=== PATIENT | female | born 1965 | race Caucasian/White ===

== ENCOUNTER 2017-06-27 18:17 | Observation (INO) | payer SELFPAY ==
[~2017-06-27] VITALS: Ht 165.1 cm; Wt 70.0 kg
[~2017-06-27 18:17] MED LIST: CYMB60CA PO; HYDROCODONE; LORT7.5T3 PO; SYNT88TA PO; VIVE0.1D TD
[2017-06-27 18:19] VITALS: BP 134/91; PULSE 110; RESP 22; TEMP 98.7; O2SAT 96
[2017-06-27 18:27] VITALS: RESP 20; O2SAT 95
[2017-06-27] MEDS ORDERED: SODIUM CHLOR 0.9% 1000 ML INJ 1,000 ML IV ONE (18:30)
[2017-06-27] MEDS ORDERED: GABA100C4 PO (18:30)
[2017-06-27] MEDS ORDERED: SYNT88TA PO (18:30)
[2017-06-27] MEDS ORDERED: SODIUM CHLORIDE 0.9% FLUSH 10 ML FLUSH IVF PRN (18:30)
[2017-06-27] MEDS ORDERED: ACETAMINOPHEN 500 MG CPLT PO ONE (18:30)
[2017-06-27] MEDS ORDERED: CYMB60CA PO (18:30)
--- NOTE | 2017-06-27 18:30 | PD ---
HPI Chief Complaint: Chest Pain Time Seen by Provider: 18:21 Travel History International Travel<30 days: No Contact w/Intl Traveler<30days: No Traveled to known affect area: No History of Present Illness HPI Patient comes in for evaluation of chest pain that began shortly prior to arrival. Patient states that chest pain began after receiving a phone call that her father . Patient describes pain as a burning sensation over the inferior aspect of her chest that radiates superiorly. Patient reports she vomited 2 that was nonbloody and nonbilious. Patient reports associated headache and right arm tingling. Denies any loss of bowel or bladder , weakness, change in vision, dizziness, shortness of breath, or fevers. Patient denies ever having a stress test or history of cardiac disease. Patient does report a history of headaches which she normally takes Tylenol. Patient reports headache is throbbing like in nature occipital lobe without radiation. Patient received Ativan by EMS en route that seemed to help some. PFSH Past Medical History Depression: Yes Cancer: No Cardiovascular Problems: No Diabetes: No Hepatitis: No Hiatal Hernia: No Respiratory: No Thyroid Disease: Yes Past Surgical History Abdominal Surgery: Yes (ABDOMINOPLASTY; REVISION ABDOMINOPLASTY) Gynecologic Surgery: Yes ( X 2) Hysterectomy: Yes Pacemaker: No Social History Tobacco Use: No Substance Use: No Allergies-Medications (Allergen,Severity, Reaction): Coded Allergies: prochlorperazine (Unverified Allergy, Severe, INVOLUNTARY CONTRACTION LIMBS, 06/27/17) hydromorphone (Verified Adverse Reaction, Mild, NAUSEA, 06/27/17) Reported Meds & Prescriptions Reported Meds & Active Scripts Active Reported Gabapentin 100 Mg Cap 100 Mg PO TID Cymbalta DR (Duloxetine HCl) 60 Mg Capdr 60 Mg PO DAILY Synthroid (Levothyroxine Sodium) 88 Mcg Tab 88 Mcg PO DAILY Review of Systems Except as stated in HPI: all other systems reviewed are Neg Physical Exam Narrative GENERAL: Well-developed, overly nourished, in no acute distress, and non-ill appearing. SKIN: Focused skin assessment warm and dry. HEAD: Atraumatic. Normocephalic. EYES: Pupils equal and round. EOMI. No scleral icterus. No injection or drainage. ENT: No nasal bleeding or discharge. Mucous membranes pink and moist. NECK: Trachea midline. No JVD. Supple. No nuclear rigidity. CARDIOVASCULAR: Regular rate and rhythm. No murmur appreciated. RESPIRATORY: No accessory muscle use. No respiratory distress. Clear to auscultation. Breath sounds equal bilaterally. GASTROINTESTINAL: Abdomen soft, non-tender, nondistended, and no guarding. Hepatic and splenic margins not palpable. Normal bowel sounds 4. No pulsatile mass. MUSCULOSKELETAL: No obvious deformities. No clubbing. No cyanosis. No edema. Full range of motion. NEUROLOGICAL: Awake and alert. No obvious cranial nerve deficits. Motor grossly within normal limits. Normal speech. PSYCHIATRIC: Appropriate mood and affect; insight and judgment normal. Data Data Last Documented VS Vital Signs Date Time Temp Pulse Resp B/P (MAP) Pulse Ox O2 Delivery O2 Flow Rate FiO2 06/27/17 18:27 20 95 Room Air 06/27/17 18:23 110 06/27/17 18:19 98.7 134/91 (105) Orders Orders Electrocardiogram (06/27/17 18:22) Basic Metabolic Panel (Bmp) (06/27/17 18:22) Ckmb (Isoenzyme) Profile (06/27/17 18:22) Complete Blood Count With Diff (06/27/17 18:22) Magnesium (Mg) (06/27/17 18:22) Prothrombin Time / Inr (Pt) (06/27/17 18:22) Act Partial Throm Time (Ptt) (06/27/17 18:22) Troponin I (06/27/17 18:22) Chest, Single Ap (06/27/17 18:22) Ecg Monitoring (06/27/17 18:22) Bilateral Bp Monitoring (06/27/17 18:22) Iv Access Insert/Monitor (06/27/17 18:22) Oximetry (06/27/17 18:22) Oxygen Administration (06/27/17 18:22) Sodium Chloride 0.9% Flush (Ns Flush) (06/27/17 18:30) Acetaminophen (Tylenol) (06/27/17 18:30) Sodium Chlor 0.9% 1000 Ml Inj (Ns 1000 M (06/27/17 18:30) Ct Brain W/O Iv Contrast(Rout) (06/27/17 ) Admit Order (Ed Use Only) (06/27/17 20:11) Aspirin Chew (Aspirin Chew) (06/27/17 20:15) Activity Bed Rest With Brp (06/27/17 20:11) Vital Signs (Adult) Q4H (06/27/17 20:11) Cardiac Rhythm .As Directed (06/27/17 20:11) Notify Dr: Other .PRN (06/27/17 20:11) Notify Dr. Parameters (06/27/17 20:11) Resp Oxygen Nasal Cannula (06/27/17 ) Ckmb (Isoenzyme) Profile (06/27/17 21:30) Ckmb (Isoenzyme) Profile (06/28/17 00:30) Troponin I (06/27/17 21:30) Troponin I (06/28/17 00:30) Electrocardiogram (06/27/17 21:30) Electrocardiogram (06/28/17 00:30) ^ Obtain (06/27/17 20:11) Sodium Chloride 0.9% Flush (Ns Flush) (06/27/17 20:15) Sodium Chloride 0.9% Flush (Ns Flush) (06/27/17 21:00) Training Generalist / Telemetry MEREDITH.Q8H (06/27/17 20:11) Labs Laboratory Tests Test 06/27/17 18:30 White Blood Count 4.3 TH/MM3 Red Blood Count 4.38 MIL/MM3 Hemoglobin 13.9 GM/DL Hematocrit 39.8 % Mean Corpuscular Volume 90.9 FL Mean Corpuscular Hemoglobin 31.8 PG Mean Corpuscular Hemoglobin Concent 35.0 % Red Cell Distribution Width 13.0 % Platelet Count 170 TH/MM3 Mean Platelet Volume 8.0 FL Neutrophils (%) (Auto) 53.8 % Lymphocytes (%) (Auto) 38.6 % Monocytes (%) (Auto) 6.6 % Eosinophils (%) (Auto) 0.7 % Basophils (%) (Auto) 0.3 % Neutrophils # (Auto) 2.3 TH/MM3 Lymphocytes # (Auto) 1.7 TH/MM3 Monocytes # (Auto) 0.3 TH/MM3 Eosinophils # (Auto) 0.0 TH/MM3 Basophils # (Auto) 0.0 TH/MM3 CBC Comment DIFF FINAL Differential Comment Prothrombin Time 10.5 SEC Prothromb Time International Ratio 1.0 RATIO Activated Partial Thromboplast Time 22.5 SEC Blood Urea Nitrogen 14 MG/DL Creatinine 0.83 MG/DL Random Glucose 105 MG/DL Calcium Level 9.7 MG/DL Magnesium Level 2.4 MG/DL Sodium Level 142 MEQ/L Potassium Level 4.1 MEQ/L Chloride Level 110 MEQ/L Carbon Dioxide Level 23.9 MEQ/L Anion Gap 8 MEQ/L Estimat Glomerular Filtration Rate 72 ML/MIN Total Creatine Kinase 72 U/L Troponin I LESS THAN 0.02 NG/ML MDM Medical Decision Making Medical Screen Exam Complete: Yes Emergency Medical Condition: Yes Interpretation(s) EKG reviewed by Dr. Jo shows sinus tach with ventricular rate 106. No STEMI. Chest x-ray read by the radiologist shows: Normal examination. CT the head read by the radiologist shows: Negative noncontrast CT the head. Differential Diagnosis Acute coronary syndrome, angina, pneumonia, stress reaction, intracranial hemorrhage, migraine, electrolyte abnormality, other Narrative Course Patient was seen and examined. Initial laboratory and radiological studies ordered. IV was established patient's placed on cardiac monitoring. Upon reassessment, patient reports improvement of symptoms is still having slight discomfort in her chest. Discussed patient with Dr. Weeks who is in agreement with plan of care and disposition. Discussed off eyes and plan care of patient was agreeable for admission to the chest pain center for further evaluation. All questions were answered. Patient was given 162 mg of aspirin by mouth. Patient remained stable that ED course. Diagnosis Primary Impression: Chest pain Qualified Codes: R07.9 - Chest pain, unspecified Admitting Information Admitting Physician Requests: Observation Condition: Stable Daryl Wagner Jun 27, 2017 18:30
--- NOTE | 2017-06-27 18:52 | RADRPT ---
EXAM DATE/TIME: 06/27/2017 18:21 [facility] COMPARISON: No previous studies available for comparison. INDICATIONS : Chest pain. MEDICAL HISTORY : None. SURGICAL HISTORY : None. ENCOUNTER: Initial ACUITY: 1 day PAIN SCORE: 10/10 LOCATION: Bilateral chest FINDINGS: A single view of the chest demonstrates the lungs to be symmetrically aerated without evidence of mas s, infiltrate or effusion. The cardiomediastinal contours are unremarkable. Osseous structures are intact. CONCLUSION: No evidence of acute cardiopulmonary disease. Yaron Jaeger MD on June 27, 2017 at 18:50 Board Certified Radiologist. This report was verified electronically.
[2017-06-27 19:13] LABS: AUTOMATED NEUTROPHIL # 2.3 TH/MM3 (1.8-7.7); BASOPHIL % 0.3 % (0.0-2.0); EOSINOPHIL % 0.7 % (0.0-4.0); HEMATOCRIT 39.8 % (35.0-46.0); HEMO FLAGS DIFF FINAL; LYMPH % 38.6 % (9.0-44.0); LYMPHOCYTE # 1.7 TH/MM3 (1.0-4.8); MEAN CELL VOLUME 90.9 FL (80.0-100.0); MEAN CORPUSCULAR HEMOGLOBIN 31.8 PG (27.0-34.0); MONO % 6.6 % (0.0-8.0); NEUT % 53.8 % (16.0-70.0); PLATELET COUNT 170 TH/MM3 (150-450); RED BLOOD COUNT 4.38 MIL/MM3 (4.00-5.30); WHITE BLOOD COUNT 4.3 TH/MM3 (4.0-11.0)
--- NOTE | 2017-06-27 19:33 | RADRPT ---
EXAM DATE/TIME: 06/27/2017 19:26 [facility] COMPARISON: No previous studies available for comparison. INDICATIONS : Headache along with chest pain. Feels like she is going to pass out. RADIATION DOSE: 31.63 CTDIvol (mGy) MEDICAL HISTORY : None SURGICAL HISTORY : Hysterectomy. ENCOUNTER: Initial ACUITY: 1 day PAIN SCALE: 5/10 LOCATION: cranial TECHNIQUE: Multiple contiguous axial images were obtained of the head. Using automated exposure control and adj ustment of the mA and/or kV according to patient size, radiation dose was kept as low as reasonably a chievable to obtain optimal diagnostic quality images. DICOM format image data is available electro nically for review and comparison. FINDINGS: CEREBRUM: The ventricles are normal for age. No evidence of midline shift, mass lesion, hemorrhage or acute in farction. No extra-axial fluid collections are seen. POSTERIOR FOSSA: The cerebellum and brainstem are intact. The 4th ventricle is midline. The cerebellopontine angle i s unremarkable. EXTRACRANIAL: The visualized portion of the orbits is intact. SKULL: The calvaria is intact. No evidence of skull fracture. CONCLUSION: Negative noncontrast head CT. Yaron Jaeger MD on June 27, 2017 at 19:31 Board Certified Radiologist. This report was verified electronically.
[2017-06-27 19:34] LABS: ANION GAP 8 MEQ/L (5-15); BICARBONATE 23.9 MEQ/L (21.0-32.0); BLOOD UREA NITROGEN 14 MG/DL (7-18); CHLORIDE 110 MEQ/L (98-107); GLOMERULAR FILTRATION RATE 72 ML/MIN (>89); MAGNESIUM 2.4 MG/DL (1.5-2.5); POTASSIUM 4.1 MEQ/L (3.5-5.1); SODIUM (NA) 142 MEQ/L (136-145)
[2017-06-27 19:40] LABS: CREATINE KINASE 72 U/L (26-192)
[2017-06-27 19:47] LABS: APTT (PATIENT) 22.5 SEC (24.3-30.1); PROTHROMBIN TIME - PATIENT 10.5 SEC (9.8-11.6)
[2017-06-27] MEDS ORDERED: ASPIRIN 81 MG CHEW TAB PO ONE (20:15)
[2017-06-27] MEDS ORDERED: SODIUM CHLORIDE 0.9% FLUSH 10 ML FLUSH IV FLUSH PRN (20:15)
[2017-06-27 20:30] VITALS: O2SAT 95
[2017-06-27] MEDS ORDERED: SODIUM CHLORIDE 0.9% FLUSH 10 ML FLUSH IV FLUSH SCH (21:00)
[2017-06-27 22:18] VITALS: BP 134/80; PULSE 90; RESP 18; TEMP 98.4; O2SAT 97
[2017-06-27 22:49] VITALS: PULSE 90
[2017-06-28 00:10] VITALS: BP 122/72; PULSE 97; RESP 16; TEMP 98.1; O2SAT 97
[2017-06-28 00:58] VITALS: PULSE 84
[2017-06-28 03:13] VITALS: PULSE 78
[2017-06-28 04:08] VITALS: BP 114/64; PULSE 73; RESP 18; TEMP 98.3; O2SAT 95
[2017-06-28 07:22] VITALS: BP 113/69; PULSE 75; RESP 16; TEMP 98.2; O2SAT 97
[2017-06-28 07:34] VITALS: O2SAT 94
--- NOTE | 2017-06-28 09:00 | MB ---
cc: RON PEARSON MD DATE OF CONSULTATION 06/28/2017 REASON FOR CONSULTATION Tonie is a 51-year-old woman who was admitted to the hospital with chest pain. Her father suddenly yesterday in his sleep. She was at [employer] [facility] with her daughter and began hyperventilating with extreme anxiety and developed chest discomfort. The chest discomfort was in her anterior chest described as a pressure tightness. It lasted for approximately five hours. She had no prior history of similar type pains. She has not been particularly active, but no exertional discomfort has been present. Risk factors for coronary disease are significant only for the of her father who had longstanding coronary disease possibly secondary to type 1 diabetes. She is a nonsmoker. She has no history of hypertension, diabetes or hyperlipidemia. She has noted that her blood pressure has been trending upward of late. PAST MEDICAL HISTORY Her past medical history is otherwise significant for cervical cancer and multiple sclerosis. ALLERGIES HYDROMORPHONE, PROCHLOPERAZINE. MEDICATIONS Current medications include: 1. Synthroid 2. Cymbalta 3. Gabapentin PHYSICAL EXAM She is awake and alert. She is in no acute distress. VITAL SIGNS: Her blood pressure is well-controlled at 113/64. NECK: There is no neck vein distension. Carotids are normal. LUNGS: Clear. CARDIOVASCULAR: Exam reveals a regular rate and rhythm. No significant murmur, no gallop was noted. ABDOMEN: Soft. There is no tenderness or organomegaly. EXTREMITIES: Reveal no edema. ASSESSMENT The patient has had atypical chest discomfort possibly is not part for grief reaction due to her father we will plan a total exercise test for further evaluation with MD JENNIFER Redd/JAYE /8:34 AM /8:39 AM
--- NOTE | 2017-06-28 09:09 | EKG ---
Date Performed: 06/28/2017 Time Performed: 00:59:11 PTAGE: 51 years EKG: Sinus rhythm LOW QRS VOLTAGE IN PRECORDIAL LEADS BORDERLINE ECG PREVIOUS TRACING : 06/27/2017 22.15 Since previous tracing, no significant change noted DOCTOR: Arcadio Alvarez Interpretating Date/Time 06/28/2017 09:08:46
--- NOTE | 2017-06-28 09:10 | EKG ---
Date Performed: 06/27/2017 Time Performed: 22:15:20 PTAGE: 51 years EKG: Sinus rhythm LOW QRS VOLTAGE IN PRECORDIAL LEADS BORDERLINE ECG PREVIOUS TRACING : 06/27/2017 18.27 Since previous tracing, no significant change noted DOCTOR: Arcadio Alvarez Interpretating Date/Time 06/28/2017 09:09:06
--- NOTE | 2017-06-28 09:12 | EKG ---
Date Performed: 06/27/2017 Time Performed: 18:27:31 PTAGE: 51 years EKG: SINUS TACHYCARDIA ABNORMAL RHYTHM ECG INTERPRETATION BASED ON A DEFAULT AGE OF 40 YEARS PREVIOUS TRACING : 06/26/2012 12.33 Since previous tracing, rate is faster DOCTOR: Arcadio Alvarez Interpretating Date/Time 06/28/2017 09:10:51
--- NOTE | 2017-06-28 10:06 | HHI.DCPOC ---
Discharge Care Plan Diagnosis: (1) Chest pain Goals to Promote Your Health * To prevent worsening of your condition and complications * To maintain your health at the optimal level Directions to Meet Your Goals Take your medications as prescribed Follow your dietary instruction Follow activity as directed Keep your appointments as scheduled Take your immunizations and boosters as scheduled If your symptoms worsen call your PCP, if no PCP go to Urgent Care Center or Emergency Room Smoking is Dangerous to Your Health. Avoid second hand smoke Call the 24-hour hour crisis hotline for domestic abuse at Boby Dunaway Jun 28, 2017 10:06
--- NOTE | 2017-06-28 16:05 | TR ---
Date Performed: 06/28/2017 Time Performed: 09:33:25 DOCTOR: Arcadio Alvarez DRUG LIST: CLINICAL HISTORY: REASON FOR TEST: Chest pain REASON FOR ENDING: OBSERVATION: CONCLUSION: YAHAIRA PROTOCOL. NO CP. TEST STOPPED AFTER EXCEEDING GOAL HR SECONDARY TO SOB.Maximum NX=027 % Max HR Achieved=96.0% Maximum KQ=667/92 Total Exercise Time=5:00 COMMENTS: Patient exercised using the Yahaira protocol. No electrocardiographic changes were seen to suggest ischemia. Hemodynamic response to exercise was normal. No significant arrhythmia was prese nt.
== END 2017-06-28 11:44 | disposition left against medical advice (07) ==
LOC: NEPE 18:17 → NEDA 20:15 → NEPFCDU 21:41
PROVIDERS: ADMIT Internal Medicine Interventional Cardiology; ATTEND Internal Medicine Interventional Cardiology
DX: R07.9 Chest pain, unspecified (principal); G35 Multiple sclerosis; F41.9 Anxiety disorder, unspecified; R94.31 Abnormal electrocardiogram [ECG] [EKG]; Z85.41 Personal history of malignant neoplasm of cervix uteri
CPT/HCPCS: 70450; 71010; 80048; 82550; 83735; 84484; 85025; 85610; 85730; 93005; 93017; 99285; G0378; J7030